=== PATIENT | male | born 1990 | race Caucasian/White ===

== ENCOUNTER 2017-02-10 16:56 | Emergency (ER) | payer OTHER ==
[2017-02-10 17:55] VITALS: BP 118/64
--- NOTE | 2017-02-10 18:29 | UC ---
Skin Complaint HPI - HPI Summary HPI Summary: Pt presents with left index finger wound. He tells me that about 4 days ago he noticed a small open wound to left index finger over the PIP joint. He thought it was a spider bite and put antibiotic cream and a band-aid on it. Today he presents with increased pain, swelling, redness, and drainage from the site. He is able to move all digits and hand. Denies numbness or tingling, fever or chills. - History of Current Complaint Chief Complaint: UCSkin Time Seen by Provider: 02/10/17 18:28 Stated Complaint: LEFT INDEX FINGER Hx Obtained From: Patient Onset/Duration: Gradual Onset Skin Exposure Onset/Duration: Days Ago Onset Severity: Moderate Current Severity: Moderate Pain Intensity: 3 Pain Scale Used: 0-10 Numeric Location: Discrete, Hand (Left) Alleviating Factor(s): OTC Meds, Cold Compresses - Allergy/Home Medications Allergies/Adverse Reactions: Allergies Allergy/AdvReac Type Severity Reaction Status Date / Time No Known Allergies Allergy Verified 02/10/17 17:49 Home Medications: Home Medications Ibuprofen TAB* [Advil TAB*] 600 mg PO Q6H PRN 02/10/17 [History Confirmed ] Review of Systems Constitutional: Negative Skin: Other - Wound left index finger Respiratory: Negative Cardiovascular: Negative Gastrointestinal: Negative Musculoskeletal: Negative Neurological: Negative All Other Systems Reviewed And Are Negative: Yes PMH/Surg Hx/FS Hx/Imm Hx Previously Healthy: Yes - Surgical History Surgical History: Yes Surgery Procedure, Year, and Place: Appendectomy 2011, [place] - Family History Known Family History: Positive: Unknown - Social History Occupation: Employed Full-time Lives: With Family Alcohol Use: None Substance Use Type: Marijuana Substance Use Comment - Amount & Last Used: "once or twice a week" Smoking Status (MU): Heavy Every Day Tobacco Smoker Type: Cigarettes Amount Used/How Often: 1/2 PPD Length of Time of Smoking/Using Tobacco: Since Age 20 Household Exposure Type: Cigarettes Cessation Counseling: Counseled 3+Min - 10 Min - Immunization History Most Recent Influenza Vaccination: Not the 2016/2017 Season Most Recent Tetanus Shot: 12/07/13 Physical Exam Triage Information Reviewed: Yes Appearance: Well-Appearing, Well-Nourished Vital Signs: Initial Vital Signs Temp 98.7 F 12/06/17 17:48 Pulse 96 02/10/17 17:48 Resp 16 02/10/17 17:48 BP 118/64 02/10/17 17:48 Pulse Ox 100 02/10/17 17:48 Vital Signs Reviewed: Yes Neck: Positive: Supple, Nontender, No Lymphadenopathy Respiratory: Positive: Chest non-tender, Lungs clear, Normal breath sounds, No respiratory distress, No accessory muscle use Cardiovascular: Positive: RRR, No Murmur, Pulses Normal Musculoskeletal: Positive: Strength Intact - Left hand and all digits, ROM Intact - Left hand and all digits, Edema @ - Left second digit over PIP joint surround the wound area - mild Neurological: Positive: Alert, Other: - Sensations intact Left hand and all digits Psychological: Positive: Age Appropriate Behavior Skin: Positive: Other - There is an 8mm in diameter wound on the dorsal aspect of the left second digit overlying the PIP. Centrally in this wound there is purulent drainage and superficial ulceration of the skin. More purulent drainage is able to be expressed from the wound. There is surrounding erythema approx 2mm around the wound edges. The area is warm to touch. There is no streaking or odor present. Course/Dx - Course Course Of Treatment: Left index finger wound - Appears consistent with a previous spider bite, but there are no identifiable bite espinoza. A wound culture was obtained. Will start Keflex and dress the area in Telfa with antibiotic ointment. - Differential Diagnoses - Skin Complaint Differential Diagnoses: Cellulitis, Foreign Body, MRSA, Other - Insect bite. - Diagnoses Provider Diagnoses: Wound left index finger. Cellulitis left index finger Discharge - Discharge Plan Condition: Stable Disposition: HOME Prescriptions: Cephalexin CAP* [Keflex CAP*] 500 mg PO BID #20 cap Patient Education Materials: Insect Bite or Sting (ED) Referrals: Jennifer Ta PA [Primary Care Provider] - Additional Instructions: 1) Keep the area clean and dry. While at work please keep it bandaged and covered. 2) Monitor for worsening symptoms such as increased redness, drainage, or streaking. If you develop a fever, SOB, chest pain, new or worsening symptoms - please call your PCP or go to the ED.
--- NOTE | 2017-02-11 18:48 | UC ---
Progress - Progress Note Progress Note: Began cephalexin yesterday for cellulitis, but is MRSA positive. Advise to discontinue use of cephalexin and change to bactrim DS one twice daily.
== END 2017-02-10 18:53 | disposition home or self-care (01) ==
LOC: UCCORT 16:56
DX: S61.201A Unspecified open wound of left index finger without damage to nail, initial encounter (principal); L03.012 Cellulitis of left finger; B95.62 Methicillin resistant Staphylococcus aureus infection as the cause of diseases classified elsewhere; X58.XXXA Exposure to other specified factors, initial encounter; Y93.9 Activity, unspecified; Y92.9 Unspecified place or not applicable; F12.90 Cannabis use, unspecified, uncomplicated; Z71.6 Tobacco abuse counseling; F17.210 Nicotine dependence, cigarettes, uncomplicated
CPT/HCPCS: 87070; 87205; 87640; 87641; 99202; G0463